=== PATIENT | female | born 1975 | race Caucasian/White ===

== ENCOUNTER 2021-12-08 20:27 | Emergency (ER) | payer OTHER ==
[~2021-12-08] VITALS: Ht 175.3 cm; Wt 64.0 kg
[2021-12-08] MEDS ORDERED: Pristiq100 MG PO (20:39)
[2021-12-08] MEDS ORDERED: METO10 PO (22:42)
== END 2021-12-08 23:16 | disposition home or self-care (01) ==
LOC: ER 20:27
DX: S00.83XA Contusion of other part of head, initial encounter (principal); S60.011A Contusion of right thumb without damage to nail, initial encounter; Z88.6 Allergy status to analgesic agent; Z87.891 Personal history of nicotine dependence; W18.30XA Fall on same level, unspecified, initial encounter
CPT/HCPCS: 70450; 72125; 73100; A9270